=== PATIENT | male | born 1985 | race Caucasian/White ===

== ENCOUNTER 2018-05-30 14:20 | Emergency (ER) | payer OTHER ==
[2018-05-30 14:35] VITALS: BMI 29.1
--- NOTE | 2018-05-30 14:48 | PDOC ---
History of Present Illness - General Chief Complaint: Weakness Stated Complaint: UNABLE TO SLEEP Time Seen by Provider: 05/30/18 14:48 - History of Present Illness Initial Comments: 05/30/18 15:30 The patient is a 32 year old male with a history of Asthma, arthritis who presents for evaluation of fever, body aches, and cough. The patient reports a 4-5 day history of subjective fevers, body aches, decreased appetite and cough. He states that he was initially seen at [facility] 4 days ago and was diagnosed with a flu like illness ad prescribed tamiflu at that time. He reports continued symptoms with some brownish sputum prompting his presentation to the ED for further evaluation. He otherwise denies headache, neck pain, neck stiffness, Chest pain, SOB, vomiting, abdominal pain, or changes with urination or bowel movements. Past History - Past Medical History Allergies/Adverse Reactions: Allergies Allergy/AdvReac Type Severity Reaction Status Date / Time No Known Allergies Allergy Verified 05/30/18 14:29 Home Medications: Ambulatory Orders Benzonatate [Tessalon Pearls -] 100 mg PO TID 05/30/18 Oseltamivir Phosphate [Tamiflu -] 75 mg PO DAILY 05/30/18 Secukinumab [Cosentyx Pen (2 Pens)] 150 mg SQ MONTHLY 05/30/18 COPD: No Other medical history: arthritis - Surgical History Appendectomy: Yes - Suicide/Smoking/Psychosocial Hx Smoking History: Never smoked Review of Systems - Review of Systems Comments:: 05/30/18 15:37 Constitutional: Fevers, chills, fatigue, malaise HEENT: No Rhinorrhea, nasal congestion, visual changes Cardiovascular: No chest pain, syncope, palpitations, lightheadedness Respiratory: Cough. No SOB, Hemoptysis, Gastrointestinal: Nausea. No Abdominal pain, Vomiting, Constipation, Diarrhea, Melena Genitourinary: No Dysuria, Frequency, Urgency, Hesitancy, Hematuria, Flank pain Musculoskeletal: No Myalgia, arthralgia Skin: No rashes, itching, bruising, pallor Neurologic: No Headache, Dizziness, Numbness, Weakness, or Tingling Psychiatric: No Hallucinations. No SI or HI *Physical Exam - Vital Signs Last Vital Signs Temp Pulse Resp BP Pulse Ox 99.7 F H 100 H 18 120/61 97 05/30/18 14:33 05/30/18 14:33 05/30/18 14:33 05/30/18 14:33 05/30/18 14:33 - Physical Exam Comments: 05/30/18 15:37 General Appearance: Nourished. No Apparent Distress HEENT: No Pharyngeal Erythema, Tonsillar Exudate, Tonsillar Erythema Neck: Full ROM. No Cervical Lymphadenopathy Respiratory/Chest: Lungs Clear, Normal Breath Sounds. No Crackles, Rales, Rhonchi, Wheezing Cardiovascular: Regular Rhythm, Regular Rate. No Murmur, Gallops, Rubs Gastrointestinal/Abdominal: Normal Bowel Sounds, Soft. No Guarding, Rebound, Tenderness Musculoskeletal: No CVA Tenderness Extremity: Normal Capillary Refill Integumentary: Normal Color, Dry, Warm Neurologic: Fully Oriented, Alert, Normal Mood/Affect, Normal Response, ED Treatment Course - LABORATORY CBC & Chemistry Diagram: 05/30/18 16:30 05/30/18 18:10 Medical Decision Making - Medical Decision Making 05/30/18 15:38 The patient is a 32 year old male with no significant PMH who presents for evaluation of fever, body aches, and cough. Differential includes but is not limited to: Viral Syndrome, Pneumonia, Infectious, Metabolic Derangement. Given the patient's history and physical exam, we will obtain a cbc, cmp, chest plain film to evaluate further. We will treat with iv fluids, tylenol, duoneb, zofran and continue to monitor and reassess while here in the ED. 05/30/18 19:28 CBC, cmp are unremarkable. Chest plain film is unremarkable. The patient reports some mild improvement in his symptoms. We are comfortable discharging the patient home with primary care provider follow up. We discussed the results , plan, and return precautions with the patient who voiced understanding and is agreeable with the plan. *DC/Admit/Observation/Transfer Diagnosis at time of Disposition: Viral syndrome - Discharge Dispostion Disposition: HOME Condition at time of disposition: Stable Decision to Admit order: No - Referrals Referrals: Venkatesh Keyes MD [Primary Care Provider] - - Patient Instructions Printed Discharge Instructions: DI for Viral Syndrome Additional Instructions: Please return to the ER if you experience concerning or worsening symptoms including worsening difficulty breathing, weakness, or chest pain, fevers. Your lab results and X-rays were normal here in the ER. Please call to schedule a follow up appointment with your primary care provider within 2-3 days to discuss your ER visit and further management of your symptoms. - Post Discharge Activity
[2018-05-30] MEDS ORDERED: ACETAMINOPHEN 1000 MG/100 ML VIAL (NON FORMULARY) IVPB ONE (14:58)
[2018-05-30] MEDS ORDERED: SODIUM CHLORIDE 1,000 ML IV STA ×2 (14:58→18:14)
[2018-05-30] MEDS ORDERED: KETOROLAC TROMETHAMINE 30 MG/1 ML VIAL IVPUSH ONE (15:20)
--- NOTE | 2018-05-30 15:20 | PDOC ---
Attending Attestation - HPI HPI: 05/30/18 15:41 The patient is a 32 year old male with a significant medical history of asthma, who presents to the emergency department for evaluation of fevers, body aches, cough, decreased appetite, and sore throat for about 5 days. He reportedly went to [facility] 4 days ago and was prescribed Tamiflu. He states he has not had an inhaler to use for some time now. He otherwise denies headache, neck pain, neck stiffness, Chest pain, SOB, vomiting, abdominal pain, or changes with urination or bowel movements. Allergies: NKDA - Physicial Exam PE: 05/30/18 15:44 Vitals: Triage vital signs reviewed General Appearance: No acute distress, well nourished, well developed Head: Atraumatic Eyes: Pupils equal reactive round, extraocular movement intact Ears: TM's normal bilaterally Nose: Nares patent bilaterally; no nasal congestion Throat: Posterior oropharynx without erythema, mucous membranes moist Neck: Supple; No nuchal rigidity Chest Wall: Nontender Cardiac: Regular rate and rhythm, no murmurs, no rubs, no gallops Lungs: Clear to auscultation bilateral, good air movement bilaterally Abdomen: Soft, nondistended, normal bowel sounds, nontender to palpation Extremities: Full range of motion to all extremities, no cyanosis, clubbing, or edema Skin: Warm and dry, no rashes or lesions, no rash, no petechiae Neuro: AOX3; Cranial Nerves 2-12 grossly intact, Strength intact to all extremities, Sensation intact to all extremities, gait normal - Medical Decision Making 05/30/18 15:45 Documentation prepared by Debra Gardner, acting as director of medical education for West Arguelles MD, <Debra Gardner - Last Filed: 05/30/18 15:41> - Resident Resident Name: Kareem Doran - ED Attending Attestation I have performed the following: I have examined & evaluated the patient, The case was reviewed & discussed with the resident, I agree w/resident's findings & plan, Exceptions are as noted - Medical Decision Making History examination consistent with influenza-like illness Positive congestion cough We'll check chest x-ray labs hydrate Tylenol Toradol DuoNeb for cough and reassess. Dr. Salgado to reassess and dispo <West Arguelles - Last Filed: 05/30/18 16:39>
[2018-05-30] MEDS ORDERED: ONDANSETRON 4 MG/2 ML VIAL IVPUSH ONE (15:29)
[2018-05-30] MEDS ORDERED: ALBUTEROL SO4 2.5/IPRATROPIUM 0.5 INH SOL 3 ML VIAL.NEB. NEB ONE ×2 (15:29→16:21)
[2018-05-30] MEDS ORDERED: KETOROLAC TROMETHAMINE 30 MG/1 ML VIAL ONE (16:21)
[2018-05-30] MEDS ORDERED: ACETAMINOPHEN INJECTION 100 ML IVPB ONE (16:21)
[2018-05-30] MEDS ORDERED: ONDANSETRON 4 MG/2 ML VIAL ONE (16:22)
[2018-05-30 17:14] LABS: BASO % 0.4 % (0-2.0); EOS % 0.4 % (0-4.5); HEMATOCRIT 45.1 % (35.4-49); HEMOGLOBIN 15.8 GM/dL (11.7-16.9); LYMPH % 19.2 % (8-40); MCH 31.1 pg (25.7-33.7); MCHC 35.1 g/dl (32.0-35.9); MEAN CELL VOLUME 88.7 fl (80-96); MEAN PLT VOLUME 8.7 fl (7.5-11.1); MONO % 15.9 % (3.8-10.2); NEUT % 64.1 % (42.8-82.8); PLATELET COUNT 196 K/MM3 (134-434); RBC 5.09 M/mm3 (4.00-5.60); RDW 12.6 % (11.9-15.9); WHITE BLOOD COUNT 6.5 K/mm3 (4.0-10.0)
[2018-05-30 18:52] LABS: ALBUMIN 3.5 g/dl (3.4-5.0); ALK PHOS 70 U/L (45-117); ANION GAP 9 MMOL/L (8-16); BILIRUBIN,TOTAL 0.8 mg/dL (0.2-1); BLOOD UREA NITROGEN 9 mg/dL (7-18); CALCIUM 8.3 mg/dL (8.5-10.1); CHLORIDE 102 mmol/L (98-107); CO2 29 mmol/L (21-32); CREATININE 0.8 mg/dL (0.55-1.3); GLUCOSE,RANDOM 88 mg/dL (74-106); POTASSIUM 3.5 mmol/L (3.5-5.1); SGOT/AST 11 U/L (15-37); SGPT/ALT 15 U/L (13-61); SODIUM 140 mmol/L (136-145); TOT PROT 6.7 g/dl (6.4-8.2)
--- NOTE | 2018-05-30 19:10 | PDOC ---
*Physical Exam - Vital Signs Last Vital Signs Temp Pulse Resp BP Pulse Ox 99.7 F H 100 H 18 120/61 97 05/30/18 14:33 05/30/18 14:33 05/30/18 14:33 05/30/18 14:33 05/30/18 14:33 ED Treatment Course - LABORATORY CBC & Chemistry Diagram: 05/30/18 16:30 05/30/18 18:10 - ADDITIONAL ORDERS Additional order review: Laboratory Results 05/30/18 05/30/18 18:10 16:30 Sodium 140 Cancelled Potassium 3.5 Cancelled Chloride 102 Cancelled Carbon Dioxide 29 Cancelled Anion Gap 9 Cancelled BUN 9 Cancelled Creatinine 0.8 Cancelled Creat Clearance w eGFR > 60 Cancelled Random Glucose 88 Cancelled Calcium 8.3 L Cancelled Total Bilirubin 0.8 Cancelled AST 11 L Cancelled ALT 15 Cancelled Alkaline Phosphatase 70 Cancelled Total Protein 6.7 Cancelled Albumin 3.5 Cancelled 05/30/18 16:30 RBC 5.09 MCV 88.7 MCHC 35.1 RDW 12.6 MPV 8.7 Neutrophils % 64.1 Lymphocytes % 19.2 Monocytes % 15.9 H Eosinophils % 0.4 Basophils % 0.4 - Medications Given in the ED: ED Medications Discontinued Medications Generic Name Dose Route Start Last Admin Trade Name Juan PRN Reason Stop Dose Admin Acetaminophen 1,000 mg 05/30/18 14:58 05/30/18 16:30 Ofirmev Injection - IVPB 05/30/18 14:59 1,000 mg ONCE ONE Administration Albuterol/Ipratropium 1 amp 05/30/18 15:29 05/30/18 16:30 Duoneb - NEB 05/30/18 15:30 1 amp ONCE ONE Administration Sodium Chloride 1,000 mls @ 1,000 mls/hr 05/30/18 14:58 05/30/18 16:32 Normal Saline - IV 05/30/18 15:57 1,000 mls/hr ASDIR STA Administration Ketorolac Tromethamine 30 mg 05/30/18 15:20 05/30/18 16:30 Toradol Injection - IVPUSH 05/30/18 15:21 30 mg ONCE ONE Administration Ondansetron HCl 4 mg 05/30/18 15:29 05/30/18 16:30 Zofran Injection IVPUSH 05/30/18 15:30 Not Given ONCE ONE Medical Decision Making - Medical Decision Making 05/30/18 19:08 32 yo male with URI symptoms with c/o malaise,cough,low grade fever cbc no leukocytosis ,no shift comp unremarkab;le cxr napd imp viral illness palliative tx,fever control,rest hydration *DC/Admit/Observation/Transfer Diagnosis at time of Disposition: Viral syndrome - Discharge Dispostion Disposition: HOME Condition at time of disposition: Stable - Referrals Referrals: Venkatesh Keyes MD [Primary Care Provider] - - Patient Instructions Printed Discharge Instructions: DI for Viral Syndrome Additional Instructions: Please return to the ER if you experience concerning or worsening symptoms including worsening difficulty breathing, weakness, or chest pain, fevers. Your lab results and X-rays were normal here in the ER. Please call to schedule a follow up appointment with your primary care provider within 2-3 days to discuss your ER visit and further management of your symptoms. - Post Discharge Activity
[2018-05-30 21:01] VITALS: BP 102/64; PULSE 66; TEMP 97.7
== END 2018-05-30 23:21 | disposition home or self-care (01) ==
LOC: JER 14:20
PROC: 3E0337Z Introduction of Electrolytic and Water Balance Substance into Peripheral Vein, Percutaneous Approach (ICD-10-PCS; principal; 2018-05-30)
PROC: 3E033NZ Introduction of Analgesics, Hypnotics, Sedatives into Peripheral Vein, Percutaneous Approach (ICD-10-PCS; 2018-05-30)
PROC: 3E0333Z Introduction of Anti-inflammatory into Peripheral Vein, Percutaneous Approach (ICD-10-PCS; 2018-05-30)
DX: B34.9 Viral infection, unspecified (principal)
CPT/HCPCS: 36415; 71046-TC-FY; 80053; 85025; 96361; 96374; 96375; 99282-25; J0131; J7030

== ENCOUNTER 2018-11-06 16:53 | Emergency (ER) | payer OTHER ==
[2018-11-06 17:01] VITALS: BP 124/70; PULSE 75; TEMP 98.2; BMI 30.4
--- NOTE | 2018-11-06 18:34 | PDOC ---
Documentation entered by Chang Watkins SCRIBE, acting as scribe for Jose Mohr MD. Jose Mohr MD: This documentation has been prepared by the antonibeRoland Collisia, SCRIBE, under my direction and personally reviewed by me in its entirety. I confirm that the documentation accurately reflects all work, treatment, procedures, and medical decision making performed by me. History of Present Illness - General Chief Complaint: Pain Stated Complaint: RIGHT GROIN/SCROTUM PAIN Time Seen by Provider: 11/06/18 17:10 History Source: Patient Exam Limitations: No Limitations - History of Present Illness Initial Comments: 11/06/18 18:26 The patient is a 33 year old male with a significant past medical history of arthritis who presents to the emergency department with right sided testicular pain for 2 days. The patient states that he was at home yesterday when he began to feel a vibrating sensation in his right testicle. He states that this sensation has been intermittently constant since last night. The patient reports that he was able to get some relief with use of pressure from a pillow to sleep. The patient denies any urinary symptoms or any noted spasms on the outside. He denies any discharge or use of any sex toys. The patient endorses some history of pain with ejaculation. He denies any fever, chills, nausea, vomiting, diarrhea, constipation, numbness, weakness or tingling sensation. He denies any chest pain , or shortness of breath. He denies any other complaints. Past History - Past Medical History Allergies/Adverse Reactions: Allergies Allergy/AdvReac Type Severity Reaction Status Date / Time No Known Allergies Allergy Verified 11/06/18 16:56 Home Medications: Ambulatory Orders Secukinumab [Cosentyx Pen (2 Pens)] 150 mg SQ MONTHLY 05/30/18 COPD: No Other medical history: ARTHRITIS - Surgical History Appendectomy: Yes - Suicide/Smoking/Psychosocial Hx Smoking History: Never smoked Hx Alcohol Use: No Drug/Substance Use Hx: No Review of Systems - Review of Systems Able to Perform ROS?: Yes Comments:: 11/06/18 18:26 Constitutional - Pt denies Fever, Chills, weakness, HEENT: denies vision changes, sore throat Respiratory: Denies cough, sob, hemoptysis Cardiac: denies chest pain, palpitations, lightheadedness, leg swelling Abd/GI: denies abd pain, nausea, vomiting, blood per rectum, melena, diarrhea : (+)right testicular pain. denies dysuria, frequency, discharge, spasms Musculoskeletal - denies back pain, joint swelling skin - denies bruising, erythema, rash neurological: denies headache, numbness, focal weakness, tingling, ataxia, weakness hematologic: denies anemia, easy bruising, easy bleeding *Physical Exam - Vital Signs Last Vital Signs Temp Pulse Resp BP Pulse Ox 98.2 F 75 16 124/70 100 11/06/18 16:54 11/06/18 16:54 11/06/18 16:54 11/06/18 16:54 11/06/18 16:54 - Physical Exam Comments: 11/06/18 18:12 GENERAL: The patient is awake, alert, and fully oriented, Nontoxic - in no acute distress. HEAD: Normocephalic, atraumatic. EYES: extraocular movements intact, sclera anicteric, conjunctiva clear. ENT: Normal voice, Moist mucous membranes. NECK: Normal range of motion, supple LUNGS: Breath sounds equal, clear to auscultation bilaterally. No wheezes, no rhonchi, no rales. HEART: Regular rate and rhythm, normal S1 and S2 without murmur, rub or gallop. ABDOMEN: Soft, nontender, No guarding, no rebound. . No CVA tenderness : Normal testicular lie, no edema or swelling, no tendeness on paplpation on penis, testcles, cremesteric reflex intact b/l EXTREMITIES: Normal range of motion, no edema. No clubbing or cyanosis. No cords, erythema, or tenderness. NEUROLOGICAL: No facial assymetry, Normal speech, PSYCH: Normal mood, normal affect. SKIN: Warm, Dry, normal turgor, Medical Decision Making - Medical Decision Making 11/06/18 18:14 33y M hx of arthritis presents with sensation of 'vibration in his groin - denies any associated pain, n/v, f/c, dysuria or discharge pts exam is normal without any signs of torsion or other abnormality (pt endorsed sensation of vibrations as I was examining him) no signs of muscle spasm either no rashes will ck urine to r/o UTI/gc 11/06/18 19:08 UA negative will dc with pmd fu return precutions were discussed I discussed the physical exam findings, ancillary test results and final diagnoses with the patient. I answered all of the patient's questions. The patient was satisfied with the care received and felt comfortable with the discharge plan and treatment plan. The patient will call their primary care physician within 24 hours to arrange follow-up and will return to the Emergency Department with any new, persistent or worsening symptoms. *DC/Admit/Observation/Transfer Diagnosis at time of Disposition: Sensation disturbance of skin - Discharge Dispostion Disposition: HOME Condition at time of disposition: Improved Decision to Admit order: No - Referrals Referrals: Venkatesh Keyes MD [Primary Care Provider] - Gary Alan MD [Staff Physician] - Damian Ambriz MD [Staff Physician] - - Patient Instructions Additional Instructions: Please follow up with a urologist for further evaluation of your sensations. If you have any pain, swelling in your testicles return to the ER for further evaulation. Print Language: MALTESE - Post Discharge Activity
== END 2018-11-06 19:20 | disposition home or self-care (01) ==
LOC: FER 16:53
DX: R20.8 Other disturbances of skin sensation (principal)
CPT/HCPCS: 36415; 81003; 87491; 87591; 99282-25

== ENCOUNTER 2019-06-21 10:35 | Emergency (ER) | payer OTHER ==
[2019-06-21 10:41] VITALS: BMI 30.5
[2019-06-21] MEDS ORDERED: ACETAMINOPHEN 1000 MG/100 ML VIAL (NON FORMULARY) IVPB ONE (10:54)
[2019-06-21] MEDS ORDERED: ONDANSETRON 4 MG/2 ML VIAL IVPB ONE (10:54)
[2019-06-21] MEDS ORDERED: SODIUM CHLORIDE 1,000 ML IV STA ×3 (10:54→13:23)
--- NOTE | 2019-06-21 10:57 | PDOC ---
History of Present Illness - General Chief Complaint: Vomiting/Diarrhea Stated Complaint: N/V/D Time Seen by Provider: 06/21/19 10:45 - History of Present Illness Initial Comments: 06/21/19 10:54 33 M with h/o arthritis on Cosentyx, presenting to ED with 1 day of N+V+D. Pt states that he started having lower abdominal cramps last night, accompanied by several episodes of watery diarrhea. Pt denies any bloody or dark stools. States that he is just passing clear water at this point. Pt denies F/C. states that this morning he began to vomit, nonbloody, nonbilious emesis. Denies any sick contacts or recent travel. Past History - Past Medical History Allergies/Adverse Reactions: Allergies Allergy/AdvReac Type Severity Reaction Status Date / Time No Known Allergies Allergy Verified 06/21/19 10:37 Home Medications: Ambulatory Orders Secukinumab [Cosentyx Pen (2 Pens)] 150 mg SQ MONTHLY 05/30/18 COPD: No - Surgical History Appendectomy: Yes - Psycho Social/Smoking Cessation Hx Smoking History: Never smoked Hx Alcohol Use: No Drug/Substance Use Hx: No Review of Systems - Review of Systems Comments:: 06/21/19 10:55 "GENERAL/CONSTITUTIONAL: No fever or chills. No weakness. HEAD, EYES, EARS, NOSE AND THROAT: No change in vision. No ear pain or discharge. No sore throat. CARDIOVASCULAR: No chest pain, no shortness of breath, no loss of consciousness RESPIRATORY: No cough, wheezing, or hemoptysis. GASTROINTESTINAL: + nausea, vomiting, and diarrhea, no constipation. GENITOURINARY: No dysuria, frequency, or change in urination. MUSCULOSKELETAL: No joint or muscle swelling or pain. No neck or back pain. SKIN: No rash NEUROLOGIC: No vertigo, no change in strength/sensation. ENDOCRINE: No increased thirst. No abnormal weight change. HEMATOLOGIC/LYMPHATIC: No anemia, easy bleeding, or history of blood clots. ALLERGIC/IMMUNOLOGIC: No hives or skin allergy. *Physical Exam - Vital Signs Last Vital Signs Temp Pulse Resp BP Pulse Ox 98.0 F 124 H 20 128/76 100 06/21/19 10:36 06/21/19 10:36 06/21/19 10:36 06/21/19 10:36 06/21/19 10:36 - Physical Exam 06/21/19 10:57 "GENERAL: Awake, alert, and fully oriented, in no acute distress. HEAD: No signs of trauma EYES: PERRLA, EOMI, sclera anicteric, conjunctiva clear ENT: Auricles normal inspection, hearing grossly normal, nares patent, oropharynx clear without exudates. Moist mucosa NECK: Nontender, no stepoffs, Normal ROM, supple, no lymphadenopathy, JVD, or masses LUNGS: Breath sounds equal, clear to auscultation bilaterally. No wheezes, and no crackles HEART: Regular rate and rhythm, normal S1 and S2, no murmurs, rubs or gallops ABDOMEN: Soft, nontender, normoactive bowel sounds. No guarding, no rebound. No masses EXTREMITIES: Normal range of motion, no edema. No clubbing or cyanosis. No cords, erythema, or tenderness NEUROLOGICAL: Cranial nerves II through XII intact. 5/5 strength and sensation in all extremities, Normal speech, normal gait, normal cerebellar function SKIN: Warm, Dry, normal turgor, no rashes or lesions noted. ED Treatment Course - LABORATORY CBC & Chemistry Diagram: 06/21/19 11:00 06/21/19 11:03 Medical Decision Making - Medical Decision Making 06/21/19 10:57 33 M with N+V+D and abdominal cramps. Likely viral gastroenteritis. Abdomen non- tender. Pt has had prior appendectomy. - Labs - IVF, GI cocktail 06/21/19 14:32 Labs wnl Pt reassessed - now able to tolerate PO fluids. Repeat abdominal exam still non-tender. Vitals normalized. Repeat HR 90. Pt is well appearing, with normal vitals. Clinically stable for DC at this time. I discussed the physical exam findings, ancillary test results and final diagnoses with the patient. I answered all of the patient's questions. The patient was satisfied with the care received and felt comfortable with the discharge plan and treatment plan. The patient agrees to follow up with the primary care physician within 24-72 hours. Discharge - Discharge Information Problems reviewed: Yes Clinical Impression/Diagnosis: Gastroenteritis, Vomiting, Diarrhea Condition: Stable Disposition: HOME - Follow up/Referral Referrals: Quynh Lo [Primary Care Provider] - - Patient Discharge Instructions Patient Printed Discharge Instructions: DI for Viral Gastroenteritis -- Adult Additional Instructions: Your symptoms are likely due to a viral infection. This may take 2-3 more days to fully run its course. Take the zofran as prescribed to treat nausea. Take tylenol or motrin as needed for fevers. If you experience any abdominal pain, severe nausea, inability to keep liquid down, or any other concerning symptoms, return to the ER immediately. Otherwise, follow up with your primary doctor within 3 days. - Post Discharge Activity
[2019-06-21] MEDS ORDERED: ACETAMINOPHEN INJECTION 100 ML IVPB ONE (10:58)
[2019-06-21] MEDS ORDERED: ONDANSETRON 4 MG/2 ML VIAL ONE (10:58)
[2019-06-21] MEDS ORDERED: FAMOTIDINE 20 MG/50 ML IVPB 20 MG/50 ML MG IVPB ONE ×2 (10:58→11:00)
[2019-06-21 11:14] LABS: HEMATOCRIT 50.6 % (35.4-49); HEMOGLOBIN 17.5 GM/dl (11.7-16.9); MCHC 34.6 g/dl (32.0-35.9); MEAN CELL VOLUME 92.3 fl (80-96); MEAN PLT VOLUME 9.5 fl (7.5-11.1); PLATELET COUNT 229 K/MM3 (134-434); RBC 5.48 M/mm3 (4.00-5.60); RDW 11.9 % (11.9-15.9); WHITE BLOOD COUNT 13.5 K/mm3 (4.0-10.8)
[2019-06-21 11:24] LABS: ALBUMIN 4.5 g/dl (3.4-5.0); BILIRUBIN,TOTAL 1.6 mg/dl (0.2-1); CALCIUM 9.4 mg/dl (8.5-10); CREATININE 1.2 mg/dl (0.55-1.3); POTASSIUM 4.2 mmol/L (3.5-5.1); TOT PROT 7.8 g/dl (6.4-8.2)
[2019-06-21 11:48] LABS: PLATELET ESTIMATE ADEQUATE
[2019-06-21] MEDS ORDERED: IBUPROFEN 600 MG TABLET (FP) PO ONE ×2 (12:14→12:16)
[2019-06-21 14:27] VITALS: BP 105/49; TEMP 99.1
[2019-06-21 15:03] VITALS: PULSE 96
== END 2019-06-21 15:28 | disposition home or self-care (01) ==
LOC: FER 10:35
PROC: 3E033NZ Introduction of Analgesics, Hypnotics, Sedatives into Peripheral Vein, Percutaneous Approach (ICD-10-PCS; principal; 2019-06-21)
PROC: 3E033GC Introduction of Other Therapeutic Substance into Peripheral Vein, Percutaneous Approach (ICD-10-PCS; 2019-06-21)
PROC: 3E0337Z Introduction of Electrolytic and Water Balance Substance into Peripheral Vein, Percutaneous Approach (ICD-10-PCS; 2019-06-21)
DX: K52.9 Noninfective gastroenteritis and colitis, unspecified (principal); R11.10 Vomiting, unspecified; M19.90 Unspecified osteoarthritis, unspecified site
CPT/HCPCS: 36415; 80053; 83690; 85025; 99283-25; J0131; J7030

== ENCOUNTER 2023-03-04 15:31 | Emergency (ER) | payer OTHER ==
[2023-03-04 16:48] VITALS: BP 118/82; PULSE 72; RESP 18; TEMP 98.4; BMI 22.1
[2023-03-04] MEDS ORDERED: IBUPROFEN 400 MG TABLET (FP) PO ONE ×2 (17:27→17:31)
[2023-03-04] MEDS ORDERED: ACETAMINOPHEN 1000 MG/100 ML BAG IVPB ONE (17:27)
[2023-03-04] MEDS ORDERED: ACETAMINOPHEN INJECTION 100 ML IVPB ONE (17:31)
[2023-03-04 18:11] LABS: HEMOGLOBIN 16.5 G/dL (11.7-16.9); MCHC 35.1 g/dl (32.0-35.9); MEAN CELL VOLUME 91.3 fl (80-96); PLATELET COUNT 218.1 10^3/uL (134-434); RBC 5.15 10^6/uL (4.00-5.60); RDW 13.1 % (11.9-15.9); WHITE BLOOD COUNT 5.1 10^3/uL (4.0-10.8)
[2023-03-04 18:25] LABS: PLATELET ESTIMATE ADEQUATE
[2023-03-04 18:26] LABS: ALBUMIN 4.7 g/dl (3.4-5.0); BLOOD UREA NITROGEN 16.5 mg/dl (7-18); POTASSIUM 4.2 mmol/L (3.5-5.1); SGPT/ALT 23.1 U/L (7-52); TOT PROT 7.4 g/dl (6.4-8.2)
[2023-03-04 19:14] LABS: BILIRUBIN,TOTAL 1.2 mg/dL (0.2-1)
== END 2023-03-04 19:30 | disposition home or self-care (01) ==
LOC: FER 15:31
PROC: 3E033NZ Introduction of Analgesics, Hypnotics, Sedatives into Peripheral Vein, Percutaneous Approach (ICD-10-PCS; principal; 2023-03-04)
DX: R10.31 Right lower quadrant pain (principal); R63.0 Anorexia
CPT/HCPCS: 36415; 74177-TC; 80053; 85027; 99285-25; Q9967